=== PATIENT | male | born 1975 | race Caucasian/White ===

== ENCOUNTER 2024-04-09 13:15 | Outpatient (AMB) | payer OTHER, SELFPAY ==
--- NOTE | 2024-04-09 13:30 | MHC.OFFWIV ---
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 IT STARTED A FEW WEEKS AGO. HE HAS BEEN USING AT HOME TREATMENTS INCLUDING SCRUBS IN THE SHOWER WELL HIS GIRLFRIEND'S TOPICAL CREAM WITHOUT RELIEF. Review of Systems Const All systems reviewed & are unremarkable except as noted in HPI and below Physical Exam Const Other: AWAKE ALERT ORIENTED DIFFUSE ALLERGIC DERMATITIS TO BILAT LOWER EXTREMITIES EXTENDING UP TO HIS TORSO WITHOUT SIGNS OF SECONDARY CELLULITIS Assessment & Plan Assessment & Plan (1) Allergic dermatitis: Code(s): L23.9 - Allergic contact dermatitis, unspecified cause Plan: . Plan THIS NOTE IS CONSTRUCTED USING VOICE RECOGNITION SOFTWARE. WHILE EVERY EFFORT HAS BEEN MADE TO ENSURE ACCURACY IN PSYCHIATRY ADULT PHYSICIAN, STILL ERRORS MAY HAVE BEEN INCLUDED SOMETIMES, THESE ERRORS MAY AFFECT THE CONTENT OR MEANING OF THE GIVEN SENTENCE . Medications: New prednisone see taper instructions 60mg x 3 days, 50 mg x 3 days, 40 mg x 3 days, 30mg x 3 days, 20mg x 3 days, 10 mg x 3days then STOP 10 mg PO DIRECTED 18 days 53 tabs 0RF hydroxyzine HCl 50 mg PO TID PRN 30 tabs 0RF itching Patient Instructions: ADVISED TO USE THE STEROID TAPER DIRECTED. IF HE DEVELOPS ANY NEW RASH OR WORSENING RASH DURING THE TAPER ADVISED HE NEEDS TO COME BACK TO THE OFFICE IMMEDIATELY SO THAT THE PREDNISONE DOSE CAN BE ADJUSTED. HYDROXYZINE GIVEN TO HELP THE ITCH. Coding Level of Care Code Est Pt Level 3 (52721) Diagnoses Allergic dermatitis L23.9
[2024-04-09 13:32] VITALS: BP 128/80; PULSE 103; TEMP 36.8; O2SAT 96; BMI 30.1
== END 2024-04-09 13:49 | disposition home or self-care (01) ==
PROVIDERS: Visit Provider Nurse Practitioner Family
DX: L23.9 Allergic contact dermatitis, unspecified cause (principal)
CPT/HCPCS: 99213

== ENCOUNTER → 2024-06-20 14:47 | Outpatient (BNVA) | payer SELFPAY | PROVIDERS: Visit Provider Physician Assistant Medical | DX: Z02.79 Encounter for issue of other medical certificate (principal) ==

== ENCOUNTER → 2024-09-05 10:16 | Outpatient (BNVA) | payer SELFPAY | PROVIDERS: Visit Provider Physician Assistant Medical | DX: Z02.79 Encounter for issue of other medical certificate (principal) ==

== ENCOUNTER → 2025-10-04 09:02 | Outpatient (BNVA) | payer SELFPAY | PROVIDERS: Visit Provider Physician Assistant | DX: Z02.79 Encounter for issue of other medical certificate (principal) ==